=== PATIENT | male | born 1985 | race Caucasian/White ===

== ENCOUNTER 2018-10-15 16:24 | Emergency (ER) | payer MEDICARE ==
[2018-10-15] MEDS ORDERED: Ketorolac 30 MG/ML SDV IM ONE (17:29)
[2018-10-15] MEDS ORDERED: Albuterol/Ipratropium 3.0-0.5 MG/3 ML Neb Soln NEB ONE (17:31)
--- NOTE | 2018-10-15 17:34 | EDM.PDOC ---
ED HPI GENERAL MEDICAL PROBLEM - General Chief Complaint: Respiratory Problem Stated Complaint: HEADACHE/UPPER RESP PROBLEMS Time Seen by Provider: 10/15/18 16:42 Source of Information: Reports: Patient, RN Notes Reviewed History Limitations: Reports: No Limitations - History of Present Illness INITIAL COMMENTS - FREE TEXT/NARRATIVE: Patient is a 33 year old male who presents to the ED for the evaluation of worsening cold symptoms. The patient had an upper respiratory infection around 3 weeks ago, that he was put on antibiotics and an inhaler for. It initially got better, but over the past 2 days the patient notes that this has worsened with the return of a cough, congestion, body aches and chills. He notes that he did have a flu shot this season. He admits to fever/chills, chest discomfort from coughing, shortness of breath with wheezing, a junky sounding cough, and mild sinus irritation. Generalized Pain Score (Numeric/FACES): 8 - Related Data Allergies Allergy/AdvReac Type Severity Reaction Status Date / Time No Known Allergies Allergy Verified 02/14/14 22:54 Home Meds: Home Meds Lacosamide [Vimpat] 200 mg PO TID 02/14/14 [History] Benzonatate [Tessalon Perle] 100 mg PO Q6HR PRN #30 capsule 10/15/18 [Rx] ClonazePAM [KlonoPIN] 0.5 mg PO TID 10/15/18 [History] Eslicarbazepine Acetate [Aptiom] 800 mg PO DAILY 10/15/18 [History] Eslicarbazepine Acetate [Aptiom] 800 mg PO DAILY 10/15/18 [History] Omeprazole 20 mg PO DAILY 10/15/18 [History] Orphenadrine [Norflex] 100 mg PO BID PRN #4 tab 10/15/18 [Rx] Past Medical History HEENT History: Reports: Other (See Below) Other HEENT History: septal surgery Neurological History: Reports: Seizure Social & Family History - Tobacco Use Smoking Status *Q: Current Every Day Smoker Years of Tobacco use: 4 Packs/Tins Daily: 0.1 - Caffeine Use Caffeine Use: Reports: Soda, Tea - Recreational Drug Use Recreational Drug Use: No ED ROS GENERAL - Review of Systems Review Of Systems: See Below Constitutional: Reports: Chills. Denies: Fatigue HEENT: Reports: Sinus Problem. Denies: Throat Pain, Throat Swelling Respiratory: Reports: Shortness of Breath, Wheezing, Cough Cardiovascular: Reports: Chest Pain (chest discomfort from coughing) Endocrine: Reports: No Symptoms GI/Abdominal: Reports: Nausea. Denies: Abdominal Pain, Diarrhea, Vomiting : Reports: No Symptoms Musculoskeletal: Reports: No Symptoms Skin: Reports: No Symptoms Neurological: Reports: Headache Psychiatric: Reports: No Symptoms Hematologic/Lymphatic: Reports: No Symptoms Immunologic: Reports: No Symptoms ED EXAM, GENERAL - Physical Exam Exam: See Below Exam Limited By: No Limitations General Appearance: Alert, WD/WN, No Apparent Distress Eye Exam: Bilateral Eye: EOMI, Normal Inspection, PERRL Ears: Normal External Exam, Normal TMs (clear serous fluid noted behind bilateral TMs) Nose: Normal Inspection, Normal Mucosa Throat/Mouth: Normal Inspection, Normal Oropharynx, No Airway Compromise Head: Atraumatic, Normocephalic Neck: Normal Inspection, Supple, Non-Tender, Full Range of Motion Respiratory/Chest: No Respiratory Distress, No Accessory Muscle Use, Chest Non- Tender, Decreased Breath Sounds, Rhonchi. No: Crackles, Wheezing Cardiovascular: Normal Peripheral Pulses, Regular Rate, Rhythm, No Murmur GI/Abdominal: Normal Bowel Sounds, Soft, Non-Tender, No Distention, No Mass Extremities: Normal Inspection, Normal Capillary Refill Neurological: Alert, Oriented, Normal Cognition, No Motor/Sensory Deficits Psychiatric: Normal Affect, Normal Mood Skin Exam: Warm, Dry, Intact, Normal Color, No Rash Course - Vital Signs Last Recorded V/S: Last Vital Signs Temp 99.4 F 10/15/18 16:39 Pulse 103 H 10/15/18 16:39 Resp 20 10/15/18 16:39 BP 139/82 10/15/18 16:39 Pulse Ox 92 L 10/15/18 17:31 - Orders/Labs/Meds Orders: Active Orders 24 hr Category Date Time Status RT Aerosol Therapy [RC] ASDIRECTED Care 10/15/18 17:31 Ordered Chest 2V [CR] Stat Exams 10/15/18 17:30 Ordered Labs: Laboratory Tests 10/15/18 10/15/18 Range/Units 18:00 18:00 WBC 8.99 (4.23-9.07) K/mm3 RBC 5.16 (4.63-6.08) M/mm3 Hgb 15.7 (13.7-17.5) gm/L Hct 46.0 (40.1-51.0) % MCV 89.1 (79.0-92.2) fl MCH 30.4 (25.7-32.2) pg MCHC 34.1 (32.2-35.5) g/dl RDW Std Deviation 40.1 (35.1-43.9) fL Plt Count 197 (163-337) K/mm3 MPV 10.2 (9.4-12.3) fl Neutrophils % (Manual) 86 H (40-60) % Band Neutrophils % 1 (0-10) % Lymphocytes % (Manual) 9 L (20-40) % Atypical Lymphs % 0 % Monocytes % (Manual) 3 (2-10) % Eosinophils % (Manual) 1 (0.8-7.0) % Basophils % (Manual) 0 L (0.2-1.2) Platelet Estimate Adequate RBC Morph Comment Normal Sodium 138 (136-145) mEq/L Potassium 4.0 (3.5-5.1) mEq/L Chloride 101 (98-107) mEq/L Carbon Dioxide 29 (21-32) mEq/L Anion Gap 12.0 (5-15) BUN 14 (7-18) mg/dL Creatinine 1.1 (0.7-1.3) mg/dL Est Cr Clr Drug Dosing 105.93 mL/min Estimated GFR (MDRD) > 60 (>60) mL/min BUN/Creatinine Ratio 12.7 L (14-18) Glucose 100 (74-106) mg/dL Calcium 8.9 (8.5-10.1) mg/dL Total Bilirubin 0.4 (0.2-1.0) mg/dL AST 23 (15-37) U/L ALT 34 (16-63) U/L Alkaline Phosphatase 105 (46-116) U/L Total Protein 8.1 (6.4-8.2) g/dl Albumin 4.0 (3.4-5.0) g/dl Globulin 4.1 gm/dL Albumin/Globulin Ratio 1.0 (1-2) Meds: Medications Discontinued Medications Generic Name Dose Route Start Last Admin Trade Name Freq PRN Reason Stop Dose Admin Albuterol/Ipratropium 3 ml 10/15/18 17:31 10/15/18 18:11 Duoneb 3.0-0.5 Mg/3 Ml NEB 10/15/18 17:32 3 ml ONETIME ONE Administration Ketorolac Tromethamine 30 mg 10/15/18 17:29 10/15/18 18:06 Toradol IM 10/15/18 17:30 30 mg ONETIME ONE Administration - Radiology Interpretation Free Text/Narrative:: Chest: 2 views of the chest were obtained. Comparison: No prior chest x-ray. Heart size and mediastinum are normal. Electro-stimulating device is seen overlying the chest. Minimal scoliosis is noted. No acute bony abnormality is seen. Heart size and mediastinum are normal. Impression: 1. Incidental findings. Nothing acute is appreciated on 2 view chest x-ray. - Re-Assessments/Exams Free Text/Narrative Re-Assessment/Exam: 10/15/18 17:35 Pt presents to the ED for the evaluation of worsening cold symptoms. CBC, CMP, CXR, 30mg IM toradol, and 1 duoneb have been ordered for initial management. Flu swab at time of triage was negative. 10/15/18 19:17 Labs and CXR are WNL, will recommend OTC cold medications with tylenol/ ibuprofen for body aches, and continued use of inhaler. Pt will be sent home with script for tessalon perles for cough and flexeril for muscle tension due to coughing. Departure - Departure Time of Disposition: 19:28 Disposition: Home, Self-Care 01 Condition: Fair Clinical Impression: Bronchitis - Discharge Information *PRESCRIPTION DRUG MONITORING PROGRAM REVIEWED*: No *COPY OF PRESCRIPTION DRUG MONITORING REPORT IN PATIENT JILL: No Prescriptions: Benzonatate [Tessalon Perle] 100 mg PO Q6HR PRN #30 capsule PRN Reason: Cough Orphenadrine [Norflex] 100 mg PO BID PRN #4 tab PRN Reason: muscle pain/spasm Instructions: Acute Bronchitis, Adult, [id number] Referrals: Natalio Muhammad Jr, MD [Primary Care Provider] - Forms: ED Department Discharge Additional Instructions: You have been evaluated in the ED for worsening cold symptoms. Your labs and chest x-ray are within normal limits, there is not a bacterial infection present, nor do you have pneumonia at this visit. This is likely due to bronchitis. Expect your cough to be present for a few weeks. You have been prescribed a medicine for your muscle aches and cough, these have been sent to [facility] pharmacy on [address]. You may take over the counter cold medications for symptom relief. You may take 600mg ibuprofen/ 500mg tylenol q6 as needed for general body aches/pains. Do not exceed 3200mg ibuprofen, 4000mg tylenol in one day. Please return to ED if your symptoms change or worsen. - My Orders Last 24 Hours: My Active Orders 10/15/18 17:30 Chest 2V [CR] Stat 10/15/18 17:31 RT Aerosol Therapy [RC] ASDIRECTED - Assessment/Plan Last 24 Hours: My Active Orders 10/15/18 17:30 Chest 2V [CR] Stat 10/15/18 17:31 RT Aerosol Therapy [RC] ASDIRECTED
--- NOTE | 2018-10-16 07:05 | CR ---
Chest: Two views of the chest were obtained. Comparison: No prior chest x-ray. Heart size and mediastinum are normal. Electro-stimulating device is seen overlying the chest. Minimal scoliosis is noted. No acute bony abnormality is seen. Heart size and mediastinum are normal. Impression: 1. Incidental findings. Nothing acute is appreciated on two-view chest x-ray. Diagnostic code #2
== END 2018-10-15 19:40 | disposition home or self-care (01) ==
LOC: JD.ED 16:24
DX: J40 Bronchitis, not specified as acute or chronic (principal); R56.9 Unspecified convulsions; F17.210 Nicotine dependence, cigarettes, uncomplicated; Z79.899 Other long term (current) drug therapy; Z98.890 Other specified postprocedural states
CPT/HCPCS: 36415; 71046; 80053; 85007; 85027; 87804; 94640; 96372; 99284; J1885; 99283; J7620-GY

== ENCOUNTER 2022-09-18 06:13 | Emergency (ER) | payer BC, MEDICARE ==
[2022-09-18 07:12] LABS: CORONAVIRUS COVID-19 NAA NEGATIVE (NEGATIVE)
[2022-09-18] MEDS ORDERED: diphenhydrAMINE 50 MG/ML SDV IVPUSH ONE (07:19)
[2022-09-18] MEDS ORDERED: Lactated Ringers 1,000 ML IV ONE (07:19)
[2022-09-18] MEDS ORDERED: Prochlorperazine 10 MG/2 ML SDV IVPUSH ONE (07:19)
[2022-09-18] MEDS ORDERED: Oseltamivir 75 MG Cap PO ONE (08:39)
== END 2022-09-18 10:00 | disposition home or self-care (01) ==
LOC: JD.ED 06:13
DX: G43.909 Migraine, unspecified, not intractable, without status migrainosus (principal); J10.1 Influenza due to other identified influenza virus with other respiratory manifestations; Z20.822 Contact with and (suspected) exposure to COVID-19
CPT/HCPCS: 0241U; 36415; 80053; 83690; 85025; 96361; 96374; 96375; 99284; A9270; J0780; J1200; J7120

== ENCOUNTER 2024-08-17 05:44 | Emergency (ER) | payer OTHER, BC ==
[2024-08-17] MEDS ORDERED: Naloxone 0.4 MG/ML SDV IVPUSH PRN (06:10)
[2024-08-17] MEDS: HYDROmorphone 1 MG/ML Syringe IM ONE (06:15)
[2024-08-17 06:30] LABS: BASOPHILS PERCENT AUTO 0.3 % (0.0-1.0); EOSINOPHILS ABSOLUTE AUTO 0.1 K/mm3 (0.0-0.4); EOSINOPHILS PERCENT AUTO 1.3 % (0.0-6.0); HEMATOCRIT 47.3 % (42.0-52.0); HEMOGLOBIN 16.1 gm/dl (14.0-18.0); IMMATURE GRAN ABSOLUTE AUTO 0.03 K/mm3 (0.00-0.05); IMMATURE GRAN PERCENT AUTO 0.4 % (0.0-0.4); LYMPHOCYTES PERCENT AUTO 13.9 % (24.0-44.0); MEAN PLATELET VOLUME 10.3 fl (9.4-12.4); MONOCYTES ABSOLUTE AUTO 0.5 K/mm3 (0.0-0.8); MONOCYTES PERCENT AUTO 7.6 % (0.0-8.0); NEUTROPHILS ABSOLUTE AUTO 5.4 K/mm3 (1.8-7.7); NEUTROPHILS PERCENT AUTO 76.5 % (41.0-71.0); PLATELET COUNT,PLT 206 K/mm3 (150-400)
[2024-08-17] MEDS: Iopamidol 612 MG/ML 100 ML Bottle IVPUSH ONE (06:46)
[2024-08-17 06:51] LABS: A/G RATIO 0.9 (1-2); ALANINE AMINOTRANSFERASE,ALT 66 U/L (16-63); ALBUMIN 4.2 g/dl (3.4-5.0); ALKALINE PHOSPHATASE 96 U/L (46-116); ANION GAP 14.4 (5-15); ASPARTATE AMNIOTRANSFERASE,AST 50 U/L (15-37); BILIRUBIN TOTAL 0.7 mg/dL (0.2-1.0); BLOOD UREA NITROGEN,BUN 14 mg/dL (7-18); BUN/CREATININE RATIO 12.7 (14-18); CALCIUM 9.2 mg/dL (8.5-10.1); CARBON DIOXIDE,CO2 28 mEq/L (21-32); CHLORIDE,CL 100 mEq/L (98-107); CREATININE 1.1 mg/dL (0.7-1.3); ESTIMATED GFR 86 mL/min (>60); GLUCOSE RANDOM 119 mg/dL (70-99); POTASSIUM,K 4.4 mEq/L (3.5-5.1); PROTEIN TOTAL,TP 8.7 g/dl (6.4-8.2); SODIUM,NA 138 mEq/L (136-145)
[2024-08-17 08:52] LABS: APPEARANCE,URINE CLEAR (Clear); BILIRUBIN,URINE NEGATIVE (Negative); COLOR,URINE YELLOW (Yellow); GLUCOSE,URINE NEGATIVE (Negative); KETONES,URINE NEGATIVE (Negative); LEUKOCYTE ESTERASE,URINE NEGATIVE (Negative); NITRITE,URINE NEGATIVE (Negative); OCCULT BLOOD,URINE NEGATIVE (Negative); PROTEIN,URINE NEGATIVE (Negative); UROBILINOGEN,URINE 0.2 (0.2-1.0)
[2024-08-17] MEDS: Ketorolac 15 MG/ML SDV IVPUSH ONE (09:20)
[2024-08-17] MEDS: Sodium Chloride 0.9% 10 ML Syringe FLUSH PRN (09:21)
== END 2024-08-17 10:40 | disposition home or self-care (01) ==
LOC: JD.ED 05:44
DX: S22.49XA Multiple fractures of ribs, unspecified side, initial encounter for closed fracture (principal); Z79.899 Other long term (current) drug therapy; V87.7XXA Person injured in collision between other specified motor vehicles (traffic), initial encounter
CPT/HCPCS: 36415; 71260; 74177; 80053; 81003; 85025; 96372; 96374; 96375; 99284; J1171; J1885; J3360; J3490; Q9967

== ENCOUNTER 2025-07-15 19:30 | Emergency (ER) | payer OTHER, BC ==
[2025-07-15] MEDS ORDERED: Sodium Chloride 0.9% 10 ML Syringe FLUSH PRN (19:57)
[2025-07-15] MEDS: LORazepam 2 MG/ML SDV IVPUSH ONE (20:02)
[2025-07-15 20:26] LABS: BASOPHILS ABSOLUTE AUTO 0.0 K/mm3 (0.0-0.2); BASOPHILS PERCENT AUTO 0.3 % (0.0-1.0); EOSINOPHILS ABSOLUTE AUTO 0.0 K/mm3 (0.0-0.4); EOSINOPHILS PERCENT AUTO 0.0 % (0.0-6.0); IMMATURE GRAN ABSOLUTE AUTO 0.08 K/mm3 (0.00-0.05); IMMATURE GRAN PERCENT AUTO 0.7 % (0.0-0.4); LYMPHOCYTES ABSOLUTE AUTO 1.0 K/mm3 (1.0-4.8); LYMPHOCYTES PERCENT AUTO 8.6 % (24.0-44.0); MEAN PLATELET VOLUME 10.1 fl (9.4-12.4); MONOCYTES ABSOLUTE AUTO 0.7 K/mm3 (0.0-0.8); MONOCYTES PERCENT AUTO 6.1 % (0.0-8.0); NEUTROPHILS ABSOLUTE AUTO 9.6 K/mm3 (1.8-7.7); NEUTROPHILS PERCENT AUTO 84.3 % (41.0-71.0); NRBC ABSOLUTE 0.00 (0.00-0.02); NRBC PERCENT 0.0 % (0.0-0.2); PLATELET COUNT,PLT 158 K/mm3 (150-400); RED BLOOD CELL COUNT 3.79 M/mm3 (4.52-5.90); WHITE BLOOD CELL COUNT,WBC 11.41 K/mm3 (3.9-11.3)
[2025-07-15 20:46] LABS: A/G RATIO 1.1 (1-2); ALANINE AMINOTRANSFERASE,ALT 71.0 U/L (16-63); ASPARTATE AMNIOTRANSFERASE,AST 63.0 U/L (15-37); BILIRUBIN TOTAL 0.5 mg/dL (0.2-1.0); BLOOD UREA NITROGEN,BUN 22.0 mg/dL (7-18); CARBON DIOXIDE,CO2 26.0 mEq/L (21-32); CHLORIDE,CL 102.0 mEq/L (98-107); CREATININE 1.6 mg/dL (0.7-1.3); EST CRCL DRUG DOSING (CG) 69.93 mL/min; ESTIMATED GFR 55.0 mL/min (>60); GLUCOSE RANDOM 97.0 mg/dL (70-99); POTASSIUM,K 3.5 mEq/L (3.5-5.1); PROTEIN TOTAL,TP 7.4 g/dl (6.4-8.2); SODIUM,NA 138.0 mEq/L (136-145)
== END 2025-07-15 21:25 | disposition home or self-care (01) ==
LOC: JD.ED 19:30
DX: R56.9 Unspecified convulsions (principal); S40.812A Abrasion of left upper arm, initial encounter; I10 Essential (primary) hypertension; K21.9 Gastro-esophageal reflux disease without esophagitis; Z79.899 Other long term (current) drug therapy; Z87.891 Personal history of nicotine dependence; V49.3XXA Car occupant (driver) (passenger) injured in unspecified nontraffic accident, initial encounter
CPT/HCPCS: 36415; 70450; 71045; 80053; 83735; 85025; 96361; 96374; 99285; J2060; J7030; 99283